=== PATIENT | female | born 1960 | race Caucasian/White ===

== ENCOUNTER 2017-12-28 09:36 | Observation (INO) | payer BC ==
--- NOTE | 2017-12-28 10:07 | EDPHY ---
HPI/HX/ROS/PE/MDM Narrative: CHIEF COMPLAINT: 60 hours of vertigo symptoms HISTORY OF PRESENT ILLNESS: The patient is a 57 y/o female with hearing loss arriving with her family complaining of vertigo symptoms onset Sunday night, 3 days ago. 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 She began experiencing frequent vertigo episodes about one year ago. Initially episodes lasted about 4 hours at a time. Over the last few months she's had several 24-hour episodes. This episode has lasted much longer than prior, but otherwise feels the same as her typical vertigo symptoms with room-spinning dizziness, photophobia, and nausea. Severity has waxed and waned along with hearing fluctuations. She has vomited twice and has decreased food intake due to nausea. She took Valium x3 and one dose of Zofran with no improvement. She has not taken any steroids yet. She does not think she has ever taken Meclizine for this, but says she has had extensive work up for this previously with multiple ENTs and head imaging. No fever, chills, rhinorrhea, sore throat, sneezing, facial pain, chest pain, shortness of breath, palpitations, abdominal pain, vomiting, diarrhea, urinary complaints, headache, lightheadedness. REVIEW OF SYSTEMS: Aside from elements discussed in the HPI, a comprehensive 10-point review of systems was reviewed and is negative. 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 Vegetarian with limited sodium intake. Born in [facility]. Is a musician. Has seen ENTs with [facility], [facility], and in [place]. VITAL SIGNS: Reviewed by me GENERAL: Thin, very hard of hearing, lying in a dark room, in no respiratory distress. HEENT: Atraumatic. Eyes: Nystagmus with upward gaze and gaze to the right. No icterus, no injection. Mouth: moist mucous membranes. No erythema or lesions. Ear: no redness around ear. Well healed incision behind right ear, mild tenderness directly over incision. Neck: supple with no adenopathy. LUNGS: Clear to auscultation bilaterally, no wheezes, rhonchi or rales. CARDIAC: Regular rate and rhythm, no rubs, murmurs or gallops. ABDOMEN: Soft, nontender, nondistended, bowel sounds normal. BACK: No CVA tenderness. EXTREMITIES: No trauma. No edema. Range of motion is normal throughout. NEURO: Alert and oriented, moving all extremities x4, sensation intact to light touch. Motor strength 5/5 throughout. Grossly nonfocal. SKIN: Warm and dry, no rash. PSYCHIATRIC: Normal mentation, no agitation. Portions of this note were transcribed by a biomedical equipment technician. I personally performed a history, physical exam, medical decision making, and confirmed accuracy of information the transcribed note. ED Course: This is a 57 y/o female with a 1-year history of progressively worsening episodes of vertigo who presents with a 60-hour episode of room-spinning dizziness, nausea, and photophobia. Symptoms are similar to prior episodes, but have lasted much longer. She's had no alleviation with Zofran or Valium at home. Apart from hearing loss and nystagmus, neuro exam is nonfocal. Plan for IV , labs, head CT, and symptom management. 1mg IV Ativan and 25mg IV Benadryl ordered. Head CT: Small amount of fluid in the right mastoid air cell suspected to be normal post surgery, no acute concerning intracranial findings. Postsurgical changes related to right cochlear implant, which caused artifact limiting interpretation. 1207: Reassessed patient and discussed work up thus far. Symptoms have minimally improved. Labs unremarkable. Spoke to patient's physician from [place] who recommended Scopolamine patch and Meclizine. Discussed with the family. Patient unable to ambulate to bathroom without significant assistance. Family is uncomfortable managing symptoms at home. Spoke with hospitalist service. Dr. Polanco accepts admission. MDM: Differential diagnosis of the patient's symptom complex was considered including but not limited to peripheral and central causes of vertigo, stroke, labyrinthitis, Meniere's disease, electrolyte abnormalities, neurologic causes. - Data Points Imaging Results: Imaging Impressions Head CT 12/28/17 10:16 Impression: 1. Postsurgical change following a partial right mastoidectomy and placement of a cochlear implant with some fluid in the inferior aspect of the right mastoids (beam hardening artifact from the implant limits assessment of portions of the right lateral brain and osseous calvarium). 2. There is no acute intracranial abnormality identified on this unenhanced study. Findings were discussed with Yesenia Garcia MD at 11:31, on 12/28/2017. Imaging: Discussed imaging studies w/ call center representative Radiologist, I viewed and interpreted images myself Laboratory Results: Laboratory Results 12/28/17 10:55 12/28/17 10:55 12/28/17 12/28/17 12/28/17 12:40 10:55 10:55 WBC 4.01 10^3/uL 10^3/uL (3.80-9.50) RBC 5.44 10^6/uL H 10^6/uL (4.18-5.33) Hgb 14.3 g/dL g/dL (12.6-16.3) Hct 44.6 % % (38.0-47.0) MCV 82.0 fL fL (81.5-99.8) MCH 26.3 pg L pg (27.9-34.1) MCHC 32.1 g/dL L g/dL (32.4-36.7) RDW 13.1 % % (11.5-15.2) Plt Count 243 10^3/uL 10^3/uL (150-400) MPV 9.4 fL fL (8.7-11.7) Neut % (Auto) 68.2 % % (39.3-74.2) Lymph % (Auto) 22.9 % % (15.0-45.0) Greene % (Auto) 7.7 % % (4.5-13.0) Eos % (Auto) 0.5 % L % (0.6-7.6) Baso % (Auto) 0.5 % % (0.3-1.7) Nucleat RBC Rel Count 0.0 % % (0.0-0.2) Absolute Neuts (auto) 2.73 10^3/uL 10^3/uL (1.70-6.50) Absolute Lymphs (auto) 0.92 10^3/uL L 10^3/uL (1.00-3.00) Absolute Monos (auto) 0.31 10^3/uL 10^3/uL (0.30-0.80) Absolute Eos (auto) 0.02 10^3/uL L 10^3/uL (0.03-0.40) Absolute Basos (auto) 0.02 10^3/uL 10^3/uL (0.02-0.10) Absolute Nucleated RBC 0.00 10^3/uL 10^3/uL (0-0.01) Immature Gran % 0.2 % % (0.0-1.1) Immature Gran # 0.01 10^3/uL 10^3/uL (0.00-0.10) Sodium 141 mEq/L mEq/L (135-145) Potassium 4.1 mEq/L mEq/L (3.5-5.2) Chloride 105 mEq/L mEq/L (97-110) Carbon Dioxide 24 mEq/l mEq/l (22-31) Anion Gap 12 mEq/L mEq/L (8-16) BUN 16 mg/dL mg/dL (7-23) Creatinine 0.6 mg/dL mg/dL (0.6-1.0) Estimated GFR > 60 Glucose 79 mg/dL mg/dL (70-100) Calcium 9.2 mg/dL mg/dL (8.5-10.4) Urine Color Pending Urine Appearance Pending Urine pH Pending Ur Specific [place] Pending Urine Protein Pending Urine Ketones Pending Urine Blood Pending Urine Nitrate Pending Urine Bilirubin Pending Urine Urobilinogen Pending Ur Leukocyte Esterase Pending Urine RBC Pending Urine WBC Pending Ur Epithelial Cells Pending Urine Glucose Pending Medications Given: Discontinued Medications Diphenhydramine HCl (Benadryl Injection) 25 mg IVP EDNOW ONE Stop: 12/28/17 10:19 Last Admin: 12/28/17 10:52 Dose: 25 mg Lorazepam (Ativan Injection) 1 mg IVP EDNOW ONE Stop: 12/28/17 10:19 Last Admin: 12/28/17 10:52 Dose: 1 mg General Time Seen by Provider: 12/28/17 09:44 Initial Vital Signs: Initial Vital Signs Temperature (C) 36.6 C 12/28/17 09:37 Heart Rate 87 12/28/17 09:37 Respiratory Rate 19 12/28/17 09:37 Blood Pressure 132/56 H 12/28/17 09:37 O2 Sat (%) 94 12/28/17 09:37 O2 Delivery Mode Nasal Cannula O2 (L/minute) 2 Allergies/Adverse Reactions: No Known Allergies Allergy (Unverified 09/11/15 12:59) Home Medications: Medication Instructions Recorded Diazepam [Valium 5 MG (*)] 5 mg PO DAILY PRN 12/28/17 Verapamil [Calan 40MG (*)] 40 mg PO TID 12/28/17 acetaZOLAMIDE [Diamox 250 mg (RX)] 250 mg PO BID 12/28/17 valACYclovir [Valtrex (*)] 500 mg PO BID PRN 12/28/17 Departure - Departure Disposition: [facility] Inpatient Acute Clinical Impression: Vertigo, Nystagmus associated with disorder of the vestibular system Condition: Fair Report Scribed for: Yesenia Garcia Report Scribed by: Lu Garcia Date of Report: 12/28/17 Time of Report: 10:07
[2017-12-28] MEDS ORDERED: LORazepam 2 MG/ML INJ IVP ONE (10:18)
[2017-12-28 11:03] LABS: PLATELET COUNT 243 10^3/uL (150-400)
[2017-12-28] MEDS ORDERED: MECLIZINE HCL 25 MG TAB PO ONE (12:41)
[2017-12-28] MEDS ORDERED: NS 1,000 ML IV ONE (12:43)
[2017-12-28] MEDS ORDERED: SCOPOLAMINE HYDROBROMIDE 1 MG/3 DAYS PATCH TD SCH (12:45)
[2017-12-28] MEDS ORDERED: ACETAMINOPHEN 500 MG TAB PO ONE (13:44)
[2017-12-28] MEDS ORDERED: DIAZEPAM 5 MG TAB PO PRN (14:46)
[2017-12-28] MEDS ORDERED: valACYclovir 500 MG TAB PO PRN (14:46)
[2017-12-28] MEDS ORDERED: ONDANSETRON 4 MG/2 ML VIAL IVP PRN (15:27)
[2017-12-28] MEDS ORDERED: ACETAMINOPHEN 325 MG TAB PO PRN (15:27)
[2017-12-28] MEDS ORDERED: ONDANSETRON DISINTEGRATING 4 MG TAB PO PRN (15:27)
--- NOTE | 2017-12-28 15:58 | GHP ---
[f rep st] HISTORY AND PHYSICAL DATE OF ADMISSION: 12/28/2017 HISTORY OF PRESENT ILLNESS: Ms. Gaets is a 57-year-old female with a history of deafness in the r ight ear since secondary to meningitis as well as recurrent episodes of vertigo who presents wi th a 60 hour episode of vertigo which is long for her. She has had some nausea, no vomiting. She asencio s been unable to walk. She has been sleeping most of the time. She has been taking Valium with no e ffect. She has seen many years of disease specialists in the past, but for unclear reasons, has not been prescribed meclizine. No fever, chills, cough, or sputum. She had a cochlear implant in her right ear on the secondary to deafness. REVIEW OF SYSTEMS: Complete 10-point review of systems conducted and negative except as noted in the HPI. PAST MEDICAL HISTORY: 1. Deafness of the right ear. 2. Meniere's disease. ALLERGIES: No known drug allergies. MEDICATIONS: Cetazol, , diazepam, valacyclovir, and verapamil. SOCIAL HISTORY: No tobacco, no alcohol. Enjoys hiking. FAMILY HISTORY: Reviewed and unremarkable. PHYSICAL EXAMINATION: VITAL SIGNS: Temperature 36.7 blood pressure 98/65, pulse 78, breathing is 18 times a minute, 96% on room air. GENERAL: Fatigued, sleeping, but opens eyes and alert. In general, no acute distress. HEENT: Sclerae are anicteric. Oropharynx is clear. There is moderate lateral ny stagmus with rightward gaze, none to the left. NECK: Supple without lymphadenopathy or JVD. LUNGS: Clear to auscultation bilaterally. HEART: Heart is S1, S2. Not tachycardic. ABDOMEN: Soft, nont cassie, nondistended. LOWER EXTREMITIES: Without edema. Calves nontender. SKIN: Without rash. NEUROL OGIC: Exam is nonfocal. IMAGING: Noncontrast head CT reviewed and interpreted by me shows postsurgical change following the right mastoidectomy and placement of cochlear implant with some fluid in the inferior aspect of the r ight mastoid. No other acute intracranial abnormality. LABORATORY: CBC is normal. Chem-7 is normal. UA is unremarkable. I discussed the case Dr. Huan Winchester of ENT. ASSESSMENT/PLAN: This is a 57-year-old female who presents with vertigo. 1. Vertigo. It is unclear what is driving her recurrent episodes of vertigo. I suspect she may hav e either Meniere's disease or some other inner ear problem. [facility] in [place]. This was just placed. She also received meclizi ne with actually fairly good symptomatic improvement. Will continue those two. 2. Query cerebellar stroke. The patient has no vascular disease and waxing and waning status argues against that and so for the time being we will not pursue MRI as I think the cochlear implant preclu jacquelyn against that anyway. 3. Somnolence. I think this is secondary to medications. 4. Prophylaxis. Sequential compression devices. 5. Disposition. Observation status. ENT will see her in consultation. /[id number]/MODL
[2017-12-28] MEDS: VERAPAMIL 40 MG TAB PO SCH ×2 (17:23→23:10)
[2017-12-28] MEDS ORDERED: LORazepam 2 MG/ML INJ IVP STA (18:33)
[2017-12-28] MEDS ORDERED: SUMAtriptan 50 MG TAB PO ONE (19:17)
[2017-12-28 20:19] VITALS: RESP 16
[2017-12-28] MEDS: acetaZOLAMIDE 250 MG TAB PO SCH (23:09)
[2017-12-28] MEDS: MECLIZINE HCL 12.5 MG TAB PO SCH (23:09)
[2017-12-29] MEDS ORDERED: NS 1,000 ML IV ONE (00:44)
[2017-12-29] MEDS ORDERED: NS 1,000 ML IV SCH (00:45)
--- NOTE | 2017-12-29 04:50 | GCON ---
[f rep st] CONSULTATION ENT CONSULTATION CHIEF COMPLAINT: Vertigo. 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 She has a several year history of intermittent vertigo diagnosed as a left-sided Meniere disease. She has seen multiple ENTs for this. Just proceeding her cochlear implant surgery, she had an exacerbation of her vertiginous symptoms. She had extended episodes of vertigo following the implant as well. She has tried managing these with Valium and has been somewhat unsuccessful lately. After multiple recurrent extended episodes, she was admitted through the emergency department. A CT was performed on admission. I reviewed the images in the radiology read and agree with the radiology read that there are no focal findings. Cochlear implant and the electrode appear to be in place appropriately. She has had no recent illnesses and no evidence of inflammatory disease given a normal white cell count and no fevers. She states she has had a persistent spinning dizziness now for over 24 hours and that this spinning is similar to what she gets with her Meniere attacks. She has also had diminished hearing in her left ear consistent with her prior Meniere attacks. She does have a distant history of migraine with headache, but does not feel like her symptoms are consistent with that. She has been placed on multiple medications previously for Meniere treatment and is currently on verapamil and Diamox, prior to admission. Since being admitted, she has been given a scopolamine patch, placed on meclizine, given Valium, and Zofran. She denies vomiting, otalgia, otorrhea. REVIEW OF SYSTEMS: Negative but for which is in the HPI. PAST MEDICAL HISTORY: Congenital deafness at the right, status post right cochlear implant 3 years ago, left Meniere disease. ALLERGIES: No known drug allergies. MEDICATIONS: Reviewed. SOCIAL HISTORY: She denies tobacco and alcohol. FAMILY HISTORY: . Otherwise unremarkable. PHYSICAL EXAMINATION: AVSS. GENERAL: Alert, interactive, moderate distress from vertigo. HEAD AND FACE: Normocephalic, atraumatic with generally symmetric facial features. EARS: At the right there is an intact postauricular incision. This is nonerythematous and nontender. Right TM is intact. No effusion. At the left, the pinna and canal are unremarkable with an intact TM and no effusion. EYES: At rest, there is a horizontal nystagmus with the slow phase to the left. NOSE: Anterior rhinoscopy is unremarkable with no evidence of polyps, purulence, bleeding. ORAL CAVITY: Clear with no mucosal masses or lesions. Age-appropriate dentition. NECK: Supple without palpable mass or adenopathy. NEURO: Cranial nerves II through XII are intact other than deficits noted at right cochlear nerve and diminished hearing at the left. Romberg and tandem Romberg were deferred. ASSESSMENT AND PLAN: A 57-year-old female with persistent vertigo in the setting of a history of Meniere disease and recent cochlear implant. Certainly , Meniere disease can cause such symptoms, but the duration of these symptoms is unusual. She does have a history of migraine, making her a migraineur. She was previously prescribed verapamil by another ENT and I assume this was for migraine prophylaxis. Given the focal nature and duration of her symptoms, vestibular migraine is certainly high on the differential. We will have her trial a triptan for this. Labrynthitis is another possibility, though unlikely given the intermittent nature of her symptoms. Treatment would be supportive for this anyhow. Given her long history of Meniere disease and that she has previously responded positively to intratympanic steroid injections, I offered this to her. We discussed this at length and she understands the risks and possible benefits of the procedure. Following this discussion, she wished to go forward with the procedure of an intratympanic steroid injection at the left ear. PROCEDURE: With headlight and binocular loupe magnification, a 6.0 speculum was placed atraumatically in the left ear canal. Patient was placed in a right lateral decubitus position. The canal and tympanic membrane were visualized and TM was found to be intact with no evidence of effusion. A small swab with phenol was used to topically anesthetize the posterior superior portion of the tympanic membrane. Three-quarters of a cc of warmed Decadron, 10 mg/mL, was then injected trans-tympanically with a 27-gauge needle. A ventil was placed just superior to the final needle insertion point. The patient tolerated the procedure well. She was left in the right lateral decubitus position. ASSESSMENT AND PLAN CONTINUED: Again, I suspect either her symptoms represent an unusual exacerbation of Meniere disease or possible vestibular migraine with labrynthitis being an unlikely etiology. As above, we will treat for both, and continue to follow her. I would recommend she be withdrawn from meclizine as soon as her symptoms allow, as this will allow for quicker adaptation and recovery. We will continue to follow her. I did discuss with her that neurology assessment may be appropriate should her symptoms continue. We are limited from doing MRI given her recent MED-L implant. The magnet could be explanted and MRI could be performed if absolutely necessary. I would recommend discussing this with her cochlear implant surgeon at [facility] prior to proceeding with this. I will check in on her tomorrow. Please call with any questions: [phone]. /[id number]/MODL MTDD
[2017-12-29] MEDS ORDERED: SUMAtriptan 50 MG TAB PO ONE (06:00)
[2017-12-29 07:53] VITALS: BP 110/65; PULSE 87; TEMP 97.9; O2SAT 99
--- NOTE | 2017-12-29 09:42 | HOSPPROG ---
Hospitalist Progress Note Assessment/Plan: 57 yo F w refractory vertigo home today see dc summary Subjective: improved. seen by ent. many questions answered Objective: Vital Signs Temp Pulse Resp BP Pulse Ox 36.6 C 87 16 110/65 99 12/29/17 07:46 12/29/17 07:46 12/29/17 07:46 12/29/17 07:46 12/29/17 07:46 12/28/17 12/29/17 12/30/17 05:59 05:59 06:59 Intake Total 1250 Balance 1250 - Physical Exam Constitutional: no apparent distress, appears nourished Eyes: PERRL, anicteric sclera Ears, Nose, Mouth, Throat: moist mucous membranes, hearing normal Cardiovascular: regular rate and rhythym, no murmur, rub, or gallop Respiratory: no respiratory distress Gastrointestinal: normoactive bowel sounds Genitourinary: no bladder fullness Skin: warm, normal color Musculoskeletal: full muscle strength ICD10 Worksheet Patient Problems: Problems Problem Status Onset Nystagmus associated with disorder of the vestibular system Acute Vertigo Acute Acute coronary syndrome Acute
--- NOTE | 2017-12-29 09:42 | PDIAF ---
- Diagnosis Diagnosis: vertigo Code Status: Full Code - Medication Management Discharge Medications: Medications to Continue on Transfer Diazepam [Valium 5 MG (*)] 5 mg PO DAILY PRN 12/28/17 [Last Taken 12/27/17] Verapamil [Calan 40MG (*)] 40 mg PO TID 12/28/17 [Last Taken 12/27/17 21:00] acetaZOLAMIDE [Diamox 250 mg (RX)] 250 mg PO BID 12/28/17 [Last Taken 12/27/17 21:00] valACYclovir [Valtrex (*)] 500 mg PO BID PRN 12/28/17 [Last Taken 12/27/17] Discharge Medications: Refer to the Discharge Home Medication list for PRN reason. - Orders Services needed: Physical Therapy - Follow Up Care Current Providers and Referrals: Huan Mcdonald [Primary Care Provider] - As per Instructions
--- NOTE | 2017-12-29 10:01 | GDS ---
[f rep st] DISCHARGE SUMMARY DISCHARGE DIAGNOSES: 1. Vertigo. 2. Chronic Meniere disease. 3. History of hearing loss in the right ear, status post cochlear implant. HOSPITAL COURSE: Please see admission history and physical by Dr. Bentley Polanco. The patient prese nted with vertigo; it was a several-day long episode. She was fairly miserable. She had taken her h ome medications to include Valium and suppressive verapamil and acetazolamide. She received meclizin e and scopolamine patch with improvement. She was seen by ENT who considered the possibility of vest ibular migraines and Imitrex was given. On the first hospital day, the patient's symptoms had largely resolved and they were anxious for discharge. Cerebellar stroke was considered and felt less likely . She has contraindication to MRI with a recent with cochlear implant. She was given prescriptions for meclizine, scopolamine patch, and Imitrex to be taken on an escalating basis in that order for re current migraines. I greatly appreciate the assistance of Dr. Huan Winchester in the management of this patient indication. /[id number]/[facility]
--- NOTE | 2017-12-29 10:52 | SOAPPROG ---
SOAP Progress Note Assessment/Plan: Assessment: Vertigo. Possible Meniere's exacerbation vs vertiginous migraine. Improved today with still some unsteadiness. Plan: - OK with D/C TODAY - Recommended trial of imitrex to abort recurrent symptoms. - Can follow up with Dr. Crisostomo for concerns of Meniere's. - Discussed plan with patient. I can follow her for a repeat steroid injection in 1 week. 12/29/17 10:49 Subjective: Improved but still feels slightly unsteady. No wolfgang vertigo, N/V. Objective: Vital Signs Temp Pulse Resp BP Pulse Ox 36.6 C 87 16 110/65 99 12/29/17 07:46 12/29/17 07:46 12/29/17 07:46 12/29/17 07:46 12/29/17 07:46 12/28/17 12/29/17 12/30/17 05:59 05:59 06:59 Intake Total 1250 Balance 1250 - Time Spent With Patient Time Spent With Patient: 30+min - Pending Discharge Pending Discharge Within 24 Hours: Yes Pending Discharge Date: 12/30/17 Pending Discharge Time: 11:00 Physical Exam - Physical Exam General Appearance: alert, no apparent distress EENT: PERRL/EOMI, TM abnormal (L) (Pinhole perf at post/sup TM. No effusion.), hearing deficit, No photophobia, No pharyngeal erythema Neck: full range of motion, normal inspection Neuro/Psych: no motor/sensory deficits, alert, normal mood/affect, No aphasia, No facial droop ICD10 Worksheet Patient Problems: Problems Problem Status Onset Nystagmus associated with disorder of the vestibular system Acute Vertigo Acute Acute coronary syndrome Acute
[2017-12-29] MEDS: MECLIZINE HCL 12.5 MG TAB PO SCH (11:21)
--- NOTE | 2017-12-29 12:35 | ASDISCHSUM ---
Discharge Information Plan Status:Home with No Needs Medically Cleared to Leave:12/28/2017 Discharge Date:12/29/2017 12:11 PM CM D/C Disposition:Home, Routine, Self-Care ADT D/C Disposition:Home, Routine, Self-Care Projected Discharge Date:12/29/2017 11:00 AM Transportation at D/C:Family Discharge Delay Reason: Follow-Up Date:12/29/2017 11:00 AM Discharge Slot:1 - 8:01 am - 12:00 noon Final Diagnosis: Placement Information Patient Contact Information Contact Name:TINO Relationship: Address:[address] [place] [address] City:[place] Alternate Phone: State/Zip Code:[place] [address] Email: Financial Information Financial Class:HMO and PPO Plans Primary Plan Desc: OUT OF STATE PPO Primary Plan Number:[id number] Secondary Plan Desc: Secondary Plan Number: Assessment Information [facility] CM Progress Note CM Note CM Note Notes: Patient is 57 year old female admitted for prolonged vertigo. ENT consult completed and d/c is planned for today likely to discharge independently. Floor RN confirms no needs for d/c. CM available should status change. Date Signed: 12/29/2017 12:33 PM Electronically Signed By:Kathi Girard LACE LACMario Length of stay for Answers: 1 day current admission Acuity / Level of Answers: No Care: Did the patient have an inpatient admission? # of Emergency department Answers: 0 visits in the last 6 months Score: 1 Date Signed: 12/29/2017 12:33 PM Electronically Signed By:Kathi Girard Intervention Information
[2017-12-29] MEDS: acetaZOLAMIDE 250 MG TAB PO SCH (12:43)
[2017-12-29] MEDS: VERAPAMIL 40 MG TAB PO SCH (12:44)
[2017-12-31] MEDS ORDERED: PATCH REMOVAL 1 EA PATCH TD SCH (12:41)
== END 2017-12-29 12:11 | disposition home or self-care (01) ==
LOC: F3N 13:56
PROVIDERS: ADMIT Internal Medicine; ATTEND Internal Medicine
DX: H81.09 Meniere's disease, unspecified ear (principal); Z96.21 Cochlear implant status
CPT/HCPCS: 70450; 97110; 97161; G0378; 96374; J1200; J2060

== ENCOUNTER → 2018-05-17 | Outpatient (CLI) | payer BC | LOC: FIMAGING 10:59 | PROVIDERS: ATTEND Family Medicine | DX: M43.12 Spondylolisthesis, cervical region (principal); M50.321 Other cervical disc degeneration at C4-C5 level; M50.322 Other cervical disc degeneration at C5-C6 level; M12.88 Other specific arthropathies, not elsewhere classified, other specified site; G47.00 Insomnia, unspecified ==

== ENCOUNTER → 2018-07-03 | Outpatient (CLI) | payer BC ==
[~2018-07-03] MED LIST: IOPAMIDOL (ISOVUE 370) 100 ML BTL IV ONE
== END ==
LOC: FIMAGING 13:56
PROVIDERS: ATTEND Psychiatry & Neurology Neurology
DX: H57.02 Anisocoria (principal)
CPT/HCPCS: Q9967

== ENCOUNTER → 2018-09-20 | Outpatient (CLI) | payer BC | LOC: FIMAGING 16:34 | PROVIDERS: ATTEND Physician Assistant Medical | DX: R31.9 Hematuria, unspecified (principal) ==